=== PATIENT | female | born 1955 | race Caucasian/White ===

== ENCOUNTER 2017-03-07 03:14 | Emergency (ER) | payer BC ==
[~2017-03-07] VITALS: Ht 162.6 cm; Wt 80.7 kg
[~2017-03-07 03:14] MED LIST: ASPI81EC98
[2017-03-07 03:21] VITALS: BP 134/101
--- NOTE | 2017-03-07 03:30 | NUR ---
PT TAKEN TO BED 5
--- NOTE | 2017-03-07 03:37 | NUR ---
61 Y/O F W/C/O BILATERAL KNEE PAIN SINCE LAST THURSDAY 1 WK AGO. PT STATES MADE A TURN TO START RUNNING WHEN SHE FELT SOMETHING PULL ON BOTH KNEES AND IS BEING IN PAIN SINCE THEN. NO S/S OF DISTRESS NOTED. ER MADE AWARE.
--- NOTE | 2017-03-07 04:15 | NUR ---
X-Ray at bedside.
[2017-03-07 04:34] VITALS: BP 137/85
--- NOTE | 2017-03-07 04:34 | NUR ---
Patient discharged BY DR HARDEN with v/s stable. Written and verbal after care instructions given and explained BY ER MD. Patient alert, oriented and verbalized understanding of instructions. Wheel Chair Assisted with by caregiver. All questions addressed prior to discharge. ID band removed. Patient advised to follow up with PMD FOR A MRI REFERAL . Rx of NAPROSYN given. Patient educated on indication of medication including possible reaction and side effects. Opportunity to ask questions provided and answered.
== END 2017-03-07 04:34 | disposition home or self-care (01) ==
LOC: MED 03:14
DX: M13.862 Other specified arthritis, left knee (principal); M13.861 Other specified arthritis, right knee
CPT/HCPCS: 73560; 99284; Q0092